=== PATIENT | female | born 1935 | race Caucasian/White ===

== ENCOUNTER 2016-08-14 20:44 | Emergency (ER) | payer MEDICARE ==
[2016-08-14] MEDS ORDERED: BETAMETHASONE D1 CR2 TP (22:01)
[2016-08-14] MEDS ORDERED: MACROBID 1100 MG/CAP PO (22:01)
[2016-08-14] MEDS ORDERED: HCTZ 25MG25 MG PO (22:02)
[2016-08-14] MEDS ORDERED: METOPROLOL SUCC50 M2 PO (22:02)
[2016-08-14] MEDS ORDERED: SYNTHROID137 MCG PO (22:03)
[2016-08-14] MEDS ORDERED: AMLODIPINE BESY1 C14 PO (22:04)
[2016-08-14 22:31] VITALS: BP 152/89
[2016-08-15] MEDS ORDERED: SUNMARK PAIN R325 MG PO (09:20)
[2016-08-15] MEDS ORDERED: ANTIVERT12.5 M1 PO (09:22)
[2016-08-15] MEDS ORDERED: MACRODANTIN100 M1 PO (09:23)
== END 2016-08-14 22:31 | disposition home or self-care (01) ==
LOC: ED 20:44
DX: R55 Syncope and collapse (principal); R11.0 Nausea; N39.0 Urinary tract infection, site not specified

== ENCOUNTER → 2016-08-15 | Outpatient (CLI) | payer MEDICARE ==
[~2016-08-15] MED LIST: AMLODIPINE BESY1 C14 PO; ANTIVERT12.5 M1 PO; BETAMETHASONE D1 CR2 TP; HCTZ 25MG25 MG PO; MACROBID 1100 MG/CAP PO; MACRODANTIN100 M1 PO; METOPROLOL SUCC50 M2 PO; SUNMARK PAIN R325 MG PO; SYNTHROID137 MCG PO
[2016-08-15 08:39] VITALS: BP 149/99
[2016-08-15 09:56] VITALS: BP 126/77
[2016-08-15 12:39] VITALS: BP 128/84
[2016-08-15 17:10] VITALS: BP 127/77
== END ==
LOC: AMSURD 08:38
DX: R11.10 Vomiting, unspecified (principal); K21.9 Gastro-esophageal reflux disease without esophagitis; N39.0 Urinary tract infection, site not specified
CPT/HCPCS: J0696; J2405; J7030

== ENCOUNTER → 2017-01-15 | Outpatient (CLI) | payer MEDICARE, BC ==
[2016-08-15 17:10] VITALS: BP 127/77
== END ==
LOC: RAD 08:51
DX: H53.9 Unspecified visual disturbance (principal); I65.23 Occlusion and stenosis of bilateral carotid arteries

== ENCOUNTER → 2017-07-01 | Day surgery (SDC) | payer MEDICARE ==
[2016-08-15 17:10] VITALS: BP 127/77
== END ==
LOC: MSO 07:13
DX: K92.1 Melena (principal); L98.9 Disorder of the skin and subcutaneous tissue, unspecified; E03.9 Hypothyroidism, unspecified; E78.5 Hyperlipidemia, unspecified; I10 Essential (primary) hypertension; Z87.891 Personal history of nicotine dependence; M81.0 Age-related osteoporosis without current pathological fracture; M19.90 Unspecified osteoarthritis, unspecified site; Z88.8 Allergy status to other drugs, medicaments and biological substances; Z85.9 Personal history of malignant neoplasm, unspecified
CPT/HCPCS: 00810; J2704; J7120

== ENCOUNTER → 2018-02-17 | Outpatient (CLI) | payer MEDICARE ==
[2016-08-15 17:10] VITALS: BP 127/77
== END ==
LOC: VAS 16:42
DX: I51.9 Heart disease, unspecified (principal); I34.0 Nonrheumatic mitral (valve) insufficiency

== ENCOUNTER 2018-03-30 16:16 | Emergency (ER) | payer MEDICARE ==
[~2018-03-30] VITALS: Ht 165.1 cm; Wt 54.5 kg
[2018-03-30 17:02] LABS: HEMATOCRIT 42.8 % (37.0-47.0); HEMOGLOBIN 13.9 g/dL (12.5-16.0); MEAN CELL VOLUME 94 fl (78-100); MEAN CORPUSCULAR HEMOGLOBIN 31 pg (27-31); MEAN CORPUSCULAR HGB CONC 33 g/dL (33-37); MEAN PLATELET VOLUME 10.1 fl (7.4-10.4); PLATELET COUNT 234 K/mm3 (130-400); RED BLOOD COUNT 4.55 M/mm3 (4.10-5.30); RED CELL DISTRIBUTION WIDTH 13.9 % (11.5-14.5)
[2018-03-30 17:11] LABS: ALBUMIN 4.2 g/dL (3.5-5.0); POTASSIUM 4.7 mmol/L (3.6-5.0); TOTAL BILIRUBIN 0.7 mg/dL (0.2-1.3); TOTAL PROTEIN 7.2 g/dL (6.3-8.2)
[2018-03-30 17:21] LABS: LIPASE 162 U/L (23-300)
[2018-03-30] MEDS ORDERED: METOPROLOL SUC200 M1 PO (17:35)
[2018-03-30] MEDS ORDERED: SYNTHROID0.15 MG PO (17:35)
[2018-03-30] MEDS ORDERED: OCUVITE ADULT1 EACH PO (17:36)
[2018-03-30] MEDS ORDERED: PEPCID40 MG/5 M1 PO (17:36)
[2018-03-30] MEDS ORDERED: CALCIUM LACTAT100 M1 PO (17:36)
[2018-03-30] MEDS ORDERED: CENTRUM SILVER1 EAC2 PO (17:36)
[2018-03-30] MEDS ORDERED: KEFLEX250 M1 PO (17:37)
[2018-03-30] MEDS ORDERED: D3 + K2 DOTS 11 EACH PO (17:37)
[2018-03-30 18:51] LABS: NEUTROPHILS 82 % (42-75)
[2018-03-30 18:52] LABS: LYMPHOCYTE 12 % (20-51); MONOCYTE 6 % (3-10)
[2018-03-30 19:09] LABS: URINE APPEARANCE CLEAR; URINE COLOR YELLOW
[2018-03-30 19:10] LABS: PH-URINE 6.5 (5.0 - 8.0); URINE BILIRUBIN NEGATIVE (NEGATIVE); URINE BLOOD NEGATIVE (NEGATIVE); URINE GLUCOSE NEGATIVE (NEGATIVE); URINE KETONE NEGATIVE (NEGATIVE); URINE LEUKOCYTE ESTERASE NEGATIVE (NEGATIVE); URINE NITRATE NEGATIVE (NEGATIVE); URINE PROTEIN(semi-quant) NEGATIVE (NEGATIVE); URINE UROBILINOGEN NORMAL (NORMAL)
[2018-03-30 21:45] VITALS: BP 147/99
== END 2018-03-30 21:45 | disposition short-term general hospital (02) ==
LOC: ED 16:16
PROVIDERS: Nurse Practitioner
DX: K56.609 Unspecified intestinal obstruction, unspecified as to partial versus complete obstruction (principal); I10 Essential (primary) hypertension; E78.5 Hyperlipidemia, unspecified; E03.9 Hypothyroidism, unspecified; Z90.49 Acquired absence of other specified parts of digestive tract; Z87.891 Personal history of nicotine dependence; Z79.899 Other long term (current) drug therapy
CPT/HCPCS: J2405; J2765; J7030; Q9967

== ENCOUNTER → 2018-09-28 | Outpatient (CLI) | payer MEDICARE ==
[~2018-09-28] MED LIST changes: +CALCIUM LACTAT100 M1 PO; +CENTRUM SILVER1 EAC2 PO; +D3 + K2 DOTS 11 EACH PO; +KEFLEX250 M1 PO; +METOPROLOL SUC200 M1 PO; +OCUVITE ADULT1 EACH PO; +PEPCID40 MG/5 M1 PO; +SYNTHROID0.15 MG PO
[2018-09-28 12:27] LABS: EOS # 0.1 (0.04-0.40); EOS % 1.4 % (1.0-5.0); HEMOGLOBIN 11.1 g/dL (12.5-16.0); LYMPH# 0.9 (1.50-4.00); MEAN CELL VOLUME 92 fl (78-100); MEAN CORPUSCULAR HEMOGLOBIN 29 pg (27-31); MEAN CORPUSCULAR HGB CONC 32 g/dL (33-37); MEAN PLATELET VOLUME 9.3 fl (7.4-10.4); MONO # 0.5 (0.20-0.80); NEU # 3.5 (1.40-6.50); PLATELET COUNT 294 K/mm3 (130-400); RED CELL DISTRIBUTION WIDTH 14.4 % (11.5-14.5)
[2018-09-28 12:45] LABS: ALBUMIN 3.7 g/dL (3.5-5.0); CALCIUM 8.5 mg/dL (8.4-10.2); POTASSIUM 3.6 mmol/L (3.6-5.0); TOTAL BILIRUBIN 0.4 mg/dL (0.2-1.3)
[2018-09-28 13:12] LABS: URINE APPEARANCE HAZY; URINE BILIRUBIN NEGATIVE (NEGATIVE); URINE BLOOD NEGATIVE (NEGATIVE); URINE COLOR YELLOW; URINE GLUCOSE NEGATIVE (NEGATIVE); URINE KETONE NEGATIVE (NEGATIVE); URINE LEUKOCYTE ESTERASE NEGATIVE (NEGATIVE); URINE NITRATE NEGATIVE (NEGATIVE); URINE PROTEIN(semi-quant) TRACE mg/dL (NEGATIVE); URINE UROBILINOGEN NORMAL (NORMAL); URINE WBC 0-1 /hpf (0-3)
[2018-09-28 13:30] LABS: TOTAL PROTEIN 6.4 g/dL (6.3-8.2)
[2018-09-28 13:38] LABS: ERYTHROCYTE SEDIMENTATION RATE 20 mm/hr (0-30)
== END ==
LOC: LAB 12:11
PROVIDERS: Nurse Practitioner Family
DX: R60.9 Edema, unspecified (principal); R34 Anuria and oliguria; R79.82 Elevated C-reactive protein (CRP); R70.0 Elevated erythrocyte sedimentation rate; Z85.528 Personal history of other malignant neoplasm of kidney

== ENCOUNTER → 2019-08-10 | Day surgery (SDC) | payer MEDICARE | END | disposition home or self-care (01) | LOC: MSO 10:06 | DX: R19.7 Diarrhea, unspecified (principal); K57.30 Diverticulosis of large intestine without perforation or abscess without bleeding; K29.70 Gastritis, unspecified, without bleeding; R63.4 Abnormal weight loss; K21.9 Gastro-esophageal reflux disease without esophagitis; I10 Essential (primary) hypertension; Z87.891 Personal history of nicotine dependence; Z85.51 Personal history of malignant neoplasm of bladder; Z85.528 Personal history of other malignant neoplasm of kidney; D64.9 Anemia, unspecified; Z79.899 Other long term (current) drug therapy; E03.9 Hypothyroidism, unspecified; Z92.3 Personal history of irradiation | CPT/HCPCS: 00813; J2704; J7120 ==